=== PATIENT | female | born 1980 | race Caucasian/White ===

== ENCOUNTER 2018-04-18 10:52 | Emergency (ER) | payer MEDICAID ==
[~2018-04-18] VITALS: Ht 584.7 cm; Wt 50.0 kg
[~2018-04-18 10:52] MED LIST: PHEN-873 PO
[2018-04-18 10:58] VITALS: BP 116/86
[2018-04-18 11:30] LABS: URINE HCG NEGATIVE (NEG)
[2018-04-18 11:36] LABS: CLARITY,URINE CLOUDY (Clear); COLOR,URINE YELLOW (Yellow); GLUCOSE, URINE NEGATIVE (Neg); KETONES,URINE NEGATIVE (Neg); LEUKOCYTE ESTERASE ,URINE MODERATE (Neg); NITRITES, URINE POSITIVE (Neg); OCCULT BLOOD,URINE MODERATE (Neg); PROTEIN,URINE 100 mg/dl (Neg)
[2018-04-18 11:39] LABS: UA COLLECTION TYPE CLN CATCH MIDSTREAM
[2018-04-18 11:42] LABS: BACTERIA,URINE 4+ /HPF (Neg); RBC,URINE 20-50 /HPF (0-2); SQUAMOUS EPITHELIAL CELL,UR MODERATE /LPF (FEW); WBC,URINE TNTC /HPF (0-4)
[2018-04-18] MEDS ORDERED: BACDS PO (11:47)
== END 2018-04-18 11:53 | disposition home or self-care (01) ==
LOC: ER 10:52
DX: N39.0 Urinary tract infection, site not specified (principal); F15.90 Other stimulant use, unspecified, uncomplicated; Z56.0 Unemployment, unspecified; Z79.899 Other long term (current) drug therapy
CPT/HCPCS: 81001; 81025; 87077; 87088; 87186; 99284

== ENCOUNTER 2025-08-11 18:28 | Emergency (ER) | payer MEDICAID ==
[~2025-08-11] VITALS: Ht 160 cm; Wt 49.0 kg
[~2025-08-11 18:28] MED LIST changes: +PHEN-786 PO; -PHEN-873 PO
[2025-08-11 18:39] VITALS: BP 104/67; PULSE 102; RESP 15; TEMP 97.6; O2SAT 98
--- NOTE | 2025-08-11 19:40 | Physician Documentation ---
HPI ~ General Chief Complaint: Medication Request Stated Complaint: MED REQUEST Time Seen by MD: 19:39 Primary Medical Doctor: None History of Present Illness HPI Comments 45-year-old female, with history of past opiate abuse and chronic back pain, who presents after missing her methadone dose. She tells me that she has chronic insomnia, and actually slept well last night, but did not wake up and time to go to the methadone clinic. She missed her dose today. She normally takes 30 mg. She reports worsening pain, but denies any significant withdrawal symptoms at this time. No other acute concerns. She can go to the clinic tomorrow. Medication Reconciliation Allergies: Coded Allergies: No Known Allergies (Unverified , 08/11/25) Scheduled PRN Phenazopyridine Hcl (Pyridium tablet), 1 TAB PO Q8H PRN for bladder spasms Past Medical History Past Medical History: UTI Past Surgical History: no surgical history Alcohol Use: None Drug Use: methamphetamine, other Lives In: Home Occupation: unemployed Review of Systems Musculoskeletal: Reports: back pain Physical Exam Physical Exam Vital Signs: Temperature: 97.6, Source: Temporal, Heart Rate: 102, Respiratory Rate: 15, BP: 104/67, Pulse Oximetry: 98, Weight: 49.000 Physical Exam General: This is a thin overall well-appearing middle-aged woman Heart: Mild tachycardia, normal-appearing peripheral perfusion Lungs: normal work of breathing, normal oxygen saturation on room air Neuro: Alert and oriented Psychiatric: Calm and cooperative with exam Progress Results/Orders Results/Orders Orders - NANETTE VILLATORO MD Methadone Tablet (Dolophine Tablet) (08/11/25 19:45) Vital Signs 08/11/25 18:39 Temp 97.6 Pulse 102 Resp 15 B/P (MAP) 104/67 Pulse Ox 98 Medical Decision Making Additional Comment The patient presents after missing her methadone dose today. She does have worsening pain, but no significant withdrawal symptoms. No other acute concerns. She will be given her dose, and discharged. I did insurance counselor her that the ER was not an appropriate place to get her methadone dose, and that she should try to avoid missing her doses. Discharge home. Departure Time of Disposition: 19:42 Disposition: 01 HOME / SELF CARE / HOMELESS Impression: Primary Impression: Medication administered Condition: Stable Discharge Instructions: Medicine Refill at the Emergency Department Referrals: NO PRIMARY CARE PROVIDER (PCP) Education Educated: Patient Educated regarding: diagnosis, need for follow up Signature Scribe Signature: na Attestation: NANETTE Manuel MD Aug 11, 2025 19:40
[2025-08-11] MEDS: methadone 10mg tablet PO ONE (19:53)
== END 2025-08-11 20:03 | disposition home or self-care (01) ==
LOC: ER 18:29
DX: F51.04 Psychophysiologic insomnia (principal); F15.90 Other stimulant use, unspecified, uncomplicated
CPT/HCPCS: 99283

== ENCOUNTER 2025-08-16 11:36 | Emergency (ER) | payer MEDICAID ==
[~2025-08-16] VITALS: Ht 170.2 cm; Wt 53.0 kg
[2025-08-16 11:40] VITALS: BP 125/83; PULSE 78; RESP 16; O2SAT 98
[2025-08-16] MEDS ORDERED: PERM60CR21 TOP (12:54)
--- NOTE | 2025-08-16 12:55 | Physician Documentation ---
History of Present Illness ~ Chief Complaint: Bite-insect Stated Complaint: "SOMETHING ITCHY ON ME" Time Seen by MD: 12:39 Primary Medical Doctor: None Source: patient Mode of Arrival: POV Exam Limitations: no limitations HPI 45-year-old female has been in a assisted living treatment facility where they have had scabies patient has a couple of scabbed areas to her right ankle and right hand. Patient started experiencing some itching to those areas a day ago. No other areas of concern Tetanus within 5 years?: Yes Medication Reconciliation Allergies: Coded Allergies: No Known Allergies (Unverified , 08/16/25) Scheduled PRN Phenazopyridine Hcl (Pyridium tablet), 1 TAB PO Q8H PRN for bladder spasms Past Medical History Past Medical History: No Pertinent History, UTI Past Surgical History: no surgical history Alcohol Use: None Drug Use: methamphetamine, other Lives In: Home Occupation: unemployed Review of Systems All Other Systems at this time: Reviewed and Negative Integumentary: Reports: see HPI Physical Exam Vital Signs: RN Vital Signs have been reviewed: Yes, Temperature: 97.5, Source: Temporal, Heart Rate: 78, Respiratory Rate: 16, BP: 125/83, Pulse Oximetry: 98, Weight: 53.000 Oxygen Flow Rate: 0 Physical Exam General: Alert, no apparent distress. HEENT: moist mucous membranes. Neck: Full range of motion. Respiratory: No respiratory distress speaking in full sentences Chest: No accessory muscle use. Cardiovascular: Appears well perfused Neurologic: Oriented x4. Psychiatric: Normal mood and affect. Skin: Normal color, warm and dry. Area of scabs to the right lateral ankle and right hand no lesions between the fingers or near the belt line Progress Results/Orders Results/Orders Vital Signs 08/16/25 11:40 Temp 97.5 Pulse 78 Resp 16 B/P (MAP) 125/83 Pulse Ox 98 O2 Flow Rate 0 Medical Decision Making Findings Patient has been in close contact with others with scabies has a couple areas of itching scabbed areas. Prescribed medications for treatment and close monitoring with primary care urgent care [facility] Departure Time of Disposition: 12:53 Disposition: 01 HOME / SELF CARE / HOMELESS Impression: Primary Impression: Scabies exposure Condition: Stable Discharge Instructions: Scabies, Adult Additional Instructions: Treatment as prescribed follow up with primary care Referrals: NO PRIMARY CARE PROVIDER (PCP) Prescriptions Permethrin (Permethrin) 5 % Cream.gm. 1 APPLIC TOP ONCE for 1 Day, #60 GM 0 Refills massage into skin from head to soles of feet one time, leave on for 8-14 hours then remove by thorough washing Prov: JANIE EDWARDS NP 08/16/25 Education Educated: Patient Educated regarding: diagnosis, treatment, need for follow up Signature Scribe Signature: No scribe Attestation: The note accurately reflects work and decisions made by me.Janie Edwards - PRIYANKA 08/16/25 12:55 JANIE EDWARDS NP Aug 16, 2025 12:55
[2025-08-16 12:59] VITALS: TEMP 97.5
== END 2025-08-16 13:00 | disposition home or self-care (01) ==
LOC: ER 11:37
DX: Z20.7 Contact with and (suspected) exposure to pediculosis, acariasis and other infestations (principal)
CPT/HCPCS: 99282

== ENCOUNTER 2025-08-27 10:14 | Emergency (ER) | payer MEDICAID ==
[~2025-08-27] VITALS: Ht 170.2 cm; Wt 53.6 kg
[~2025-08-27 10:14] MED LIST changes: +PERM60CR21 TOP
[2025-08-27 10:35] VITALS: BP 136/70; PULSE 76; RESP 18; TEMP 96.9; O2SAT 100
== END 2025-08-27 12:44 | disposition left against medical advice (07) ==
LOC: ER 10:15
DX: F41.9 Anxiety disorder, unspecified (principal); Z53.21 Procedure and treatment not carried out due to patient leaving prior to being seen by health care provider
CPT/HCPCS: 99281

== ENCOUNTER → 2025-10-17 | Emergency (ER) | payer MEDICAID ==
[~2025-10-17] VITALS: Ht 170.2 cm; Wt 52.9 kg
--- NOTE | 2025-10-17 09:49 | Physician Documentation ---
History of Present Illness Stated Complaint: COUGH Primary Medical Doctor: None Medication Reconciliation Allergies: Coded Allergies: No Known Allergies (Unverified , 10/17/25) Scheduled Permethrin (Permethrin), 1 APPLIC TOP ONCE Scheduled PRN Phenazopyridine Hcl (Pyridium tablet), 1 TAB PO Q8H PRN for bladder spasms Past Medical History Past Medical History: No Pertinent History, UTI Past Surgical History: no surgical history Alcohol Use: None Drug Use: methamphetamine, other Lives In: Home Occupation: unemployed Review of Systems ROS As stated above in the HPI, otherwise all systems are reviewed and negative. Medical Decision Making Additional information obtaine: old records Differential Dx:Considerations: Other Departure Referrals: NO PRIMARY CARE PROVIDER (PCP) Signature Scribe Signature: x Attestation: The note accurately reflects work and decisions made by me.Mary Crane NP 10/17/25 09:48 MARY DEL ANGEL NP Oct 17, 2025 09:49
--- NOTE | 2025-10-17 10:02 | ELECTROCARDIOGRAPH REPORT ---
[facility] Test Date: 2025-10-17 Test Time: 10:01:56 Pat Name: SAEID RODRIGUEZ Department: [facility] Patient ID: [facility]-[id number] Room: Gender: F Coder: : 1980 Requested By: MARY DEL ANGEL Order Number: [id number] Reading MD: Dr. SERGO Ledesma Measurements Intervals [place] Rate: 82 P: 78 NV: 122 QRS: 79 QRSD: 79 T: 53 QT: 414 QTc: 484 Interpretive Statements Sinus rhythm Baseline wander in lead(s) V1,V4 Electronically Signed On 10-18-2025 16:52:[address] SERGO Ledesma Please click the below link to view image of tracing.
[2025-10-17 10:06] VITALS: BP 141/95; PULSE 84; RESP 20; TEMP 98.8; O2SAT 100
[2025-10-17 10:12] LABS: MEAN PLATELET VOLUME 8.4 FL (7.4-10.4); RED CELL DISTRIBUTION WIDTH 17.5 % (11.5-14.5)
[2025-10-17 10:33] LABS: CREATININE 0.70 MG/DL (0.40-0.90); TOTAL CARBON DIOXIDE 28.4 MMOL/L (24-32); eCRCL 84 ML/MIN; eGFR 90 ML/MIN
== END | disposition left against medical advice (07) ==
LOC: ER 09:33
DX: R05.9 Cough, unspecified (principal); F15.90 Other stimulant use, unspecified, uncomplicated; F19.90 Other psychoactive substance use, unspecified, uncomplicated; Z53.21 Procedure and treatment not carried out due to patient leaving prior to being seen by health care provider; Z79.899 Other long term (current) drug therapy; Z56.0 Unemployment, unspecified; Z87.440 Personal history of urinary (tract) infections
CPT/HCPCS: 36415; 80048; 80076; 83690; 84484; 85025; 93005; 99281

== ENCOUNTER 2025-10-20 13:51 | Emergency (ER) | payer MEDICAID ==
[~2025-10-20] VITALS: Ht 170.2 cm; Wt 52.0 kg
[2025-10-20 14:12] LABS: LEUKOCYTE ESTERASE ,URINE TRACE (Neg); OCCULT BLOOD,URINE TRACE-INTACT (Neg); URINE HCG NEGATIVE (NEG)
[2025-10-20 14:19] LABS: NITRITES, URINE NEGATIVE (Neg); UA COLLECTION TYPE CLN CATCH MIDSTREAM
[2025-10-20 14:20] LABS: MUCUS STRANDS FEW /LPF (Neg); SQUAMOUS EPITHELIAL CELL,UR MANY /LPF (FEW)
[2025-10-20 14:36] LABS: MEAN PLATELET VOLUME 8.4 FL (7.4-10.4); RED CELL DISTRIBUTION WIDTH 17.5 % (11.5-14.5)
[2025-10-20 14:53] LABS: CREATININE 0.71 MG/DL (0.40-0.90); TOTAL CARBON DIOXIDE 28.4 MMOL/L (24-32); eCRCL 81 ML/MIN; eGFR 89 ML/MIN
[2025-10-20] MEDS: phenazopyridine 100mg tablet PO ONE (15:35)
--- NOTE | 2025-10-20 15:35 | Physician Documentation ---
History of Present Illness Chief Complaint: Flank Pain Stated Complaint: KIDNEY PAIN Time Seen by MD: 14:46 Primary Medical Doctor: None Mode of Arrival: POV, Ambulatory HPI 45-year-old female presenting with right flank pain and dysuria She tells me that all of her symptoms started today. She reports having dysuria. She also reports pain in her right flank region that is deep and achy. It does not radiate to the abdomen. No fevers or chills. No nausea or vomiting. No upper abdominal pain. No other related symptoms. She does have a history of bladder and kidney infections in the past. She does not think that this is back muscle pain Medication Reconciliation Allergies: Coded Allergies: No Known Allergies (Unverified , 10/20/25) Scheduled Permethrin (Permethrin), 1 APPLIC TOP ONCE Scheduled PRN Phenazopyridine Hcl (Pyridium tablet), 1 TAB PO Q8H PRN for bladder spasms Past Medical History Past Medical History: No Pertinent History, UTI Past Surgical History: no surgical history Alcohol Use: None Drug Use: methamphetamine, other Lives In: Home Occupation: unemployed Review of Systems Constitutional: Denies: chills, fever Gastrointestinal: Denies: abdominal pain Genitourinary: Reports: dysuria, flank pain Physical Exam Vital Signs: Temperature: 97.6, Source: Temporal, Heart Rate: 89, Respiratory Rate: 16, BP: 131/90, Pulse Oximetry: 96, Weight: 52.000 Oxygen Flow Rate: 0 Physical Exam General: This is a pleasant and nontoxic appearing woman HEENT: Atraumatic, oropharynx is moist Heart: Regular rate and rhythm, normal-appearing peripheral perfusion Lungs: normal work of breathing, normal oxygen saturation on room air Abdomen: Soft, nondistended, nontender all quadrants including in the right upper quadrant Back: The patient has tenderness on palpation of the right paralumbar muscles, also has positive CVA tenderness to percussion on the right Neuro: Alert and oriented Psychiatric: Calm and cooperative with exam Progress Results/Orders Results/Orders Orders - NANETTE VILLATORO MD Urinalysis, Cult If Indicated (10/20/25 15:08) Completed Orders - NANETTE VILLATORO MD Hcg, Ur Ql (10/20/25 14:02) Cbc/Diff (10/20/25 14:02) BMP (10/20/25 14:02) Lipase (10/20/25 14:02) CMP (10/20/25 14:02) Ua W/Microscopic, Cult If Ind (10/20/25 14:03) Phenazopyridine Tablet (Pyridium Tablet) (10/20/25 15:30) Vital Signs 10/20/25 10/20/25 10/20/25 13:59 14:48 14:50 Temp 97.6 Pulse 97 89 Resp 15 16 16 B/P (MAP) 128/90 131/90 (104) Pulse Ox 98 96 O2 Flow Rate 0 Laboratory Tests Test 10/20/25 14:03 10/20/25 14:24 Urine Specimen Description Cln catch midstream Urine Color Yellow Urine Clarity Cloudy Urine pH 6.5 Urine Specific [place] 1.025 Urine Protein Trace Urine Glucose (UA) Negative Urine Ketones Negative Urine Occult Blood Trace-intact Urine Nitrite Negative Urine Bilirubin Negative Urine Urobilinogen 0.2 Urine Leukocyte Esterase Trace H Urine RBC 0-2 Urine WBC 5-10 H Urine Squamous Epithelial Cells Many Urine Bacteria 1+ Urine Mucus Few Urine Culture Indicated Rejected for culture Volume Urine Centrifuged 10 ml Urine HCG, Qualitative Negative Urine Comment White Blood Count 8.6 Red Blood Count 3.43 L Hemoglobin 9.6 L Hematocrit 29.0 L Mean Corpuscular Volume 84.5 Mean Corpuscular Hemoglobin 28.1 Mean Corpuscular Hemoglobin Concent 33.2 Red Cell Distribution Width 17.5 H Platelet Count 208 Mean Platelet Volume 8.4 Neutrophils (%) (Auto) 84.4 H Lymphocytes (%) (Auto) 8.6 L Monocytes (%) (Auto) 6.2 Eosinophils (%) (Auto) 0.4 Basophils (%) (Auto) 0.4 Neutrophils # (Auto) 7.3 Lymphocytes # (Auto) 0.7 L Monocytes # (Auto) 0.5 Eosinophils # (Auto) 0.0 Basophils # (Auto) 0.0 CBC Comment Sodium Level 137 Potassium Level 4.2 Chloride Level 102 Carbon Dioxide Level 28.4 Anion Gap 7 L Blood Urea Nitrogen 10 Creatinine 0.71 Estimated GFR/1.73 m2 89 BUN/Creatinine Ratio 14.1 Glucose Level 95 Calcium Level 8.4 L Total Bilirubin 0.4 Aspartate Amino Transf (AST/SGOT) 17 Alanine Aminotransferase (ALT/SGPT) 18 Alkaline Phosphatase 62 Total Protein 8.6 H Albumin 4.3 Globulin 4.3 Albumin/Globulin Ratio 1.0 L Lipase 23 Chemistry Comments Medical Decision Making Additional information obtaine: N/A Findings na Differential Dx:Considerations: Appendicitis, Cholelithasis, Diverticular disease, Urinary obstruction, Urinary tract infection, Urolithiasis Additional Comments The patient presents with right-sided flank pain and dysuria. Her laboratory testing was normal including no leukocytosis and normal kidney function. Initial urinalysis appears to be a contaminated specimen. Repeat urinalysis does not appear consistent with an infection. No dangerous cause identified for her pain. I suspect that this is a deep muscle strain. I did offer to perform a CT scan to look for kidney stone or other internal process but she declined. She will be discharged home with symptomatic treatment and return precautions. Departure Time of Disposition: 16:38 Disposition: 01 HOME / SELF CARE / HOMELESS Impression: Primary Impression: Low back pain Condition: Stable Discharge Instructions: Lumbosacral Strain Referrals: NO PRIMARY CARE PROVIDER (PCP) Education Educated: Patient Educated regarding: diagnosis, treatment, need for follow up Signature Scribe Signature: reyes Attestation: NANETTE Manuel MD Oct 20, 2025 15:35
[2025-10-20 15:43] LABS: LEUKOCYTE ESTERASE ,URINE NEGATIVE (Neg); NITRITES, URINE NEGATIVE (Neg); OCCULT BLOOD,URINE TRACE-INTACT (Neg)
[2025-10-20 15:46] LABS: UA COLLECTION TYPE NON-SPECIFIED
[2025-10-20 15:49] LABS: MUCUS STRANDS NONE SEEN /LPF (Neg); SQUAMOUS EPITHELIAL CELL,UR FEW /LPF (FEW)
[2025-10-20 16:49] VITALS: BP 115/95; PULSE 87; RESP 16; O2SAT 96
[2025-10-20 16:50] VITALS: TEMP 97.6
== END 2025-10-20 16:50 | disposition home or self-care (01) ==
LOC: ER 13:51
DX: M54.50 Low back pain, unspecified (principal); R10.A1 Flank pain, right side; R30.0 Dysuria
CPT/HCPCS: 36415; 80053; 81001; 81025; 83690; 85025; 99283